=== PATIENT | female | born 1985 | race Caucasian/White ===

== ENCOUNTER 2017-02-27 19:25 | Emergency (ER) | payer OTHER ==
[~2017-02-27] VITALS: Ht 170.2 cm; Wt 110.7 kg
[2017-02-27 19:46] VITALS: BP 141/94
--- NOTE | 2017-02-27 23:15 | NUR ---
PT TAKEN TO BED 6
--- NOTE | 2017-02-27 23:23 | NUR ---
Dr. Amanda evaluating patient at bedside.
[2017-02-27 23:41] LABS: BASOPHILS # (AUTO) 0.3 K/uL (0.00-0.22); EOSINOPHILS # (AUTO) 0.2 K/uL (0-0.4); EOSINOPHILS % (AUTO) 1.5 % (0.0-4.0); HEMATOCRIT 42.4 % (36-48); HEMOGLOBIN 14.2 g/dL (12.0-16.0); LYMPHOCYTES # (AUTO) 2.5 K/uL (2.5-16.5); LYMPHOCYTES % (AUTO) 23.5 % (20.5-51.1); MEAN CORPUSCULAR HEMOGLOBIN 29 pg (27-31); MEAN CORPUSCULAR HGB CONC 34 g/dL (33-37); MEAN CORPUSCULAR VOLUME 86 fL (80-94); MONOCYTES # (AUTO) 0.8 K/uL (0.8-1.0); MONOCYTES % (AUTO) 7.2 % (1.7-9.3); NEUTROPHILS # (AUTO) 6.8 K/uL (1.8-7.7); NEUTROPHILS % (AUTO) 64.8 % (42.2-75.2); PLATELET COUNT (AUTO) 236 K/uL (140-450); RED BLOOD CELL COUNT(AUTO) 4.93 MIL/uL (4.20-5.40); RED CELL DISTRIBUTION WIDTH 12.7 % (11.6-13.7); WHITE BLOOD COUNT (AUTO) 10.6 K/uL (4.8-10.8)
--- NOTE | 2017-02-27 23:50 | NUR ---
PT LEFT UNIT FOR US VIA WHEELCHAIR.
--- NOTE | 2017-02-28 00:40 | NUR ---
PT BACK TO UNIT FROM US.
--- NOTE | 2017-02-28 01:50 | NUR ---
DR. BINGHAM PERFORMED PELVIC EXAM AT BEDSIDE.
--- NOTE | 2017-02-28 01:51 | NUR ---
DR. BINGHAM PERFORMING PELVIC EXAM WITH FEMALE EMT [employer]
[2017-02-28 02:05] VITALS: BP 120/72
== END 2017-02-28 02:05 | disposition home or self-care (01) ==
LOC: MED 19:25
DX: O20.0 Threatened abortion (principal); K21.9 Gastro-esophageal reflux disease without esophagitis; Z90.49 Acquired absence of other specified parts of digestive tract; Z3A.01 Less than 8 weeks gestation of pregnancy
CPT/HCPCS: 36415; 76801; 81002; 81025; 84702; 85025; 99285